=== PATIENT | male | born 1955 | race African-American/Black ===

== ENCOUNTER 2017-04-09 19:14 | Inpatient (IN) | payer OTHER ==
[~2017-04-09] VITALS: Ht 180.3 cm; Wt 87.6 kg
--- NOTE | ~2017-04-09 | WRIGHTHP ---
[place], [place] PATIENT HISTORY AND PHYSICAL EXAM [id number] #: [id number] ROOM: 311 DOCTOR: ROSEMARIE BUSH MD BIRTHDATE: [birth year] DOS: 04/10/2017 INITIAL PYSCHIATRIC EVALUATION. CHIEF COMPLAINT: "I've just been so depressed, I screwed up, I really disappointed myself." HISTORY OF PRESENT ILLNESS: This is a 62-year-old black male who presented to Emergency Room complaining of increased depression. The patient has had multiple psychiatric admissions in his lifetime. Most recently, his in September of this year and since that time, he had relapsed after being clean for 7 months, drug of choice is cocaine. The patient reports that he was going to overdose on his medications and did not want to go on because he feels like he is a failure. The depression has worsened over the last month. He endorses poor sleep with difficulty falling asleep, sleep continuity disturbance, hot frame tender awakening, anergia, anhedonia, hopeless, helpless feelings, crying spells, and inability to cope. Most recently, he has been stabilized on Cymbalta 30 mg a day and Seroquel 50 mg at bedtime as well as Neurontin 300 mg t.i.d. He is admitted now to rule out organic factors, stabilize on medication and to engage in individual and haney milieu activity. PAST MEDICAL HISTORY: Remarkable for hypertension and chronic pain issues. MENTAL STATUS: He is alert and oriented to person, place, and time. Mood is overwhelmingly depressed. Affect is flat and blunted with a constricted range. He endorses multiple neurovegetative symptoms and suicidal thoughts. There is no hypomania or letitia. There are no auditory or visual hallucinations. No delusions, no paranoia. Short, intermediate, and long-term memory are intact. DIAGNOSIS: Major depression, recurrent, severe; dysthymic disorder and cocaine abuse, unspecified. PLAN: I will continue him on Cymbalta, but increase from 30 to 60 mg at bedtime. I had augmented this last evening with Remeron, but I will discontinue Remeron in lieu of Wellbutrin-XL 150 mg in the morning. This will mimic the effect of cocaine and help block any cocaine withdrawal symptoms that he might have. It also does not interact adversely with the Cymbalta. I will maintain Seroquel at 50 mg at bedtime as an augmenting agent for the antidepressants. We will engage him in individual and haney milieu activity with the ultimate plan to discharge back home to the [facility] when psychiatrically stable. [place], [place] PATIENT HISTORY AND PHYSICAL EXAM NAME: BRENTON ODOM UNIT #: [id number] ROOM: 311 DOCTOR: ROSEMARIE BUSH MD BIRTHDATE: [birth year] ROSEMARIE BUSH MD CM:HISPHYS:PATIENT HISTORY AND PHYSICAL EXAMINATION 5 5 ROSEMARIE BUSH MD 04/10/17955 interface
--- NOTE | ~2017-04-09 | DS ---
[place], [place] DISCHARGE SUMMARY [id number] #: [id number] ROOM: 312 DOCTOR: ROSEMARIE BUSH MD BIRTHDATE: [birth year] DOS: 04/18/2017 CHIEF COMPLAINT: "I have just been so depressed, I screwed up, I really disappointed myself." HISTORY OF PRESENT ILLNESS: This is a 62-year-old black male who presented to the emergency room at [facility] complaining of increased depression. He has had multiple psychiatric admissions in his lifetime, most recently his in September of this year and since that time, he relapsed after being clean off of cocaine for 7 months. He reports that he was going to overdose on his medication and did not want to go on because he feels like he is a failure. His depression has worsened over the last month. He endorses poor sleep with difficulty falling asleep, sleep continuity disturbance, director of early childhood education awakening, anergia, anhedonia, hopeless, helpless feelings, crying spells, and inability to cope. Most recently, he was on Cymbalta and Seroquel as well as some Neurontin. He was admitted now to rule out organic factors and to stabilize on medication. SUMMARY OF HOSPITAL COURSE: The patient was admitted to the unit where he was found to be overwhelmingly depressed. He was continued initially on his Cymbalta and then had it augmented first with Remeron, but then this was discontinued in lieu of Wellbutrin. Later, he stated that he wanted something that he could take in the morning and at night, so these medications were discontinued. He was having significant sleep difficulty with difficulty falling asleep, sleep continuity disturbance and director of early childhood education awakening. Doxepin 150 mg at bedtime was utilized as antidepressant and he was augmented then with Prozac weekly because he states that in the past he had done well on Prozac. The patient engaged readily in therapy and utilized therapy to develop positive coping skills and a positive discharge plan. He wanted to find a way to stay clean and sober and avoid the pitfalls of his past indiscretions. He convincingly denied suicidal thoughts, homicidal thoughts and he convincingly denied medication side effects. On the day of discharge, he did request that I order him something as a p.r.n. that would not be addictive that he could use for sleep. He was fearful that lack of sleep would lead him into bad behavior. He voiced positive plans for the future and was discharged back home to [place] on April 18. MENTAL STATUS AT DISCHARGE: The patient was alert and oriented to person, place, and time. Mood was euthymic. Affect appropriate. There were no symptoms of hypomania or letitia. There were no overt auditory or visual hallucinations. No delusions, no paranoia. Memory was fully intact. FINAL DIAGNOSES: Major depression, recurrent, severe; dysthymic disorder and cocaine abuse. [place], [place] DISCHARGE SUMMARY NAME: BRENTON ODOM UNIT #: [id number] ROOM: 312 DOCTOR: ROSEMARIE BUSH MD BIRTHDATE: [birth year] ROSEMARIE BUSH MD CM:VICENTE [id number] ROSEMARIE BUSH MD 04/18/17 1620 interface
--- NOTE | 2017-04-09 19:00 | NUR ---
SPOKE WITH DR. BUSH ON NEW REFERRAL, PATIENT WILL BE ADMITTED TO UNIT VIA PINK SLIP WITH DIAGNOSIS OF MAJOR DEPRESSION DISORDER AND ORDERS RECIEVED AT THIS TIME.
--- NOTE | 2017-04-09 19:10 | NUR ---
ST ELENITA VALDEZ CALLED IN TO REPORT PATIENT'S BP IS 128/90, COMPARED WITH BP AT 5PM OF 170/90.
[2017-04-09] MEDS ORDERED: CYMBALTA30 MG PO (19:52)
[2017-04-09] MEDS ORDERED: ADVIL200 MG PO (19:53)
[2017-04-09] MEDS ORDERED: NEURONTIN300 MG PO (19:53)
[2017-04-09] MEDS ORDERED: SEROQUEL50 MG PO (19:54)
[2017-04-09] MEDS ORDERED: MINIPRESS5 MG PO (20:25)
[2017-04-09 22:18] VITALS: BP 146/92
--- NOTE | 2017-04-09 23:00 | NUR ---
BRENTON ODOM a 62 year old M admitted via stretcher from [facility] as an emergency 72 hr. hold admission. Arrived on unit at 2215. ALLERGIES: NKA. Vital signs are: [id number] 146/92. The client signed the following forms with stated understanding: Authorization For The Release of Medical Information, Clothing List, Consent and Release Forms/Receipt of Rights, Acknowledgement of Advance Directive Information, Behavioral Health Consent Form, and Informed Consent of Medications. Admitted under the services of Dr. ELEAZAR FRANKLIN,[facility]. A search was conducted and hazardous articles were removed. Client was oriented to the unit. PT CO-OPERATIVE THROUGHOUT ADMISSION. ALERT & ORIENTED X4. PT DEPRESSED & VOICED MISSING HIS SINCE HER IN SEPTEMBER. DENIES SUICIDAL FEELINGS & STATED THAT HE IS LONLY. STATES DIFFICULTY SLEEPING & HAVING NIGHTMARES. NELLIE LABOY
--- NOTE | 2017-04-09 23:17 | NUR ---
SPOKE WITH DR NUGENT. INFORMED OF ADMISSIONS AND BRIEF HISTORY. NO NEW ORDERS AT THIS TIME
[2017-04-09 23:21] VITALS: BP 146/92
--- NOTE | 2017-04-10 06:26 | NUR ---
PT HAS BEEN OBSERVED ON Q 15 MIN CHECKS & HAS SLEPT QUIETLY THROUGHOUT THE SHIFT PAST [id number].
[2017-04-10 06:56] LABS: MEAN CELL VOLUME 89.6 fl (80.0-94.0); MEAN CORPUSCULAR HGB 29.9 pg (27.0-31.0); MEAN CORPUSCULAR HGB CONC 33.3 g/dl (33.0-37.0); MEAN PLATELET VOLUME 10.6 fl (9.6-12.3); PLATELET COUNT AUTOMATED 155 10*3/uL (130-400); RED BLOOD COUNT 4.69 10*6/uL (4.50-5.90); RED CELL DISTRI WIDTH 12.8 % (0-14.5); WHITE BLOOD COUNT 6.1 10*3/uL (4.8-10.8)
[2017-04-10 07:12] LABS: ALBUMIN 3.2 gm/dl (3.1-4.5); ALKALINE PHOSPHATASE 54 U/L (45-117); BUN 20 mg/dl (7-24); CHLORIDE 109 mmol/L (98-107); CHOLESTEROL 127 mg/dL (<200); CREATININE 1.44 mg/dL (0.70-1.30); HDL CHOLESTEROL 58 mg/dl (40-60); LDL CHOLESTEROL 55 mg/dL (9-159); POTASSIUM 3.6 mmol/L (3.5-5.1); SGOT/AST 24 IU/L (3-35); SGPT/ALT 26 U/L (12-78); SODIUM 141 mmol/L (136-145); TOTAL PROTEIN 6.6 gm/dL (6.4-8.2); TRIGLYCERIDES 71 mg/dl (<150); VLDL CHOLESTEROL 14 mg/dL (6-40)
[2017-04-10 07:14] LABS: TOTAL CELLS COUNTED 100 #CELLS
[2017-04-10 07:15] LABS: BURR CELLS FEW; PLATELET SUFFICIENCY NORMAL (NORMAL)
[2017-04-10 07:20] LABS: THYROID STIM HORMONE (HS) 0.612 uIU/ml (0.358-4.75)
[2017-04-10 07:51] VITALS: BP 102/66
[2017-04-10 07:55] LABS: VITAMIN D, 25-HYDROXY 27.2 ng/mL (30-100)
--- NOTE | 2017-04-10 13:30 | NUR ---
IV PLACED IN LEFT AC USING A 22 GAUGE IV CATHETER.
--- NOTE | 2017-04-10 14:33 | NUR ---
PT ENCOUARGED TO COME OUT OF ROOM TO WATCH FOOTBALL BUT PT REPORTS THAT HE IS FEELING VERY TIRED TODAY BECAUSE HE HASN'T BEEN SLEEPING MUCH SINCE HE RELAPSED ON CRACK COCAINE. PT IS IN HIS ROOM, LAYING IN BED WITH EYES CLOSED. RESP EASY AND REGULAR.
--- NOTE | 2017-04-10 16:47 | NUR ---
PT REPORTS THAT HE HASN'T HAD A BOWELMOVEMENT FOR 5 DAYS AND IS REQUESTING A SUPPOSITORY. PT STATES THAT DULCOLAX HAS BEEN EFFECTIVE IN THE PAST AND HE WOULD LIKE TO HAVE THIS MEDICATION ORDERED. DR. ESTHER ESCAMILLA MADE AWARE OF PT'S COMPLAINTS AND REQUEST FOR DULCOLAX VIA TELEPHONE AT [id number].
--- NOTE | 2017-04-10 17:33 | NUR ---
DR. ESCAMILLA HERE TO SEE PATIENT.
--- NOTE | 2017-04-10 17:33 | NUR ---
PT WAS GIVEN DULCOLAX FOR C/O CONSTIPATION. PT ENCOURAGED TO MAKE STAFF AWARE IF MEDICATION IS EFFECTIVE. HE AGREED.
[2017-04-10 20:00] VITALS: BP 125/70
--- NOTE | 2017-04-10 21:18 | NUR ---
24 HR chart check completed.
--- NOTE | 2017-04-10 22:00 | NUR ---
PT STATED RELIEF OF CONSTIPATION WITH DULCOLAX. STATED HE WENT A LITTLE BIT.
--- NOTE | 2017-04-11 06:08 | NUR ---
PT HAS BEEN OBSERVED ON Q 15 MIN CHECKS & HAS SLEPT QUIETLY THROUGHOUT THE SHIFT PAST 2315.
[2017-04-11 07:06] LABS: BUN 16 mg/dl (7-24); CHLORIDE 110 mmol/L (98-107); CREATININE 1.22 mg/dL (0.70-1.30); POTASSIUM 3.6 mmol/L (3.5-5.1); SODIUM 141 mmol/L (136-145)
[2017-04-11 07:51] VITALS: BP 98/53
--- NOTE | 2017-04-11 09:00 | NUR ---
RADHA GRAVESNP ON UNIT TO ASSESS PT.
--- NOTE | 2017-04-11 12:47 | NUR ---
PT ALERT TO PERSON,PLACE,TIME AND SITUATION. PT MED COMPLIANT WITHOUT DIFFICULTY. PT MOOD IS DEPRESSED, PT ISOLATIVE TO ROOM, REQUIRING MUCH ENCOURAGEMENT TO PARTICIPTE IN GROUPS/ACTIVITIES. NO HALLUCINATIONS OR DELUSIONS NOTED. PT DENIES ANY HOMICIDAL/SUICIDAL THOUGHTS. PT CONTRACTED FOR SAFETY WITH STAFF, IF SUCH THOUGHTS ARISE. PT AMBULATORY THROUGHOUT UNIT, GAIT STEADY. PT CONSUMED 100% OF BREAKFAST AND LUNCH. PT CONTINENT OF BOWEL AND BLADDER. MED EDUCATION PROVIDED. PLAN IS TO CONTINUE TO ENCOURAGE PT TO PARTICIPATE IN GROUPS/ACTIVITIES, MONITOR PT BEHAVIORS ON Q15 MIN SAFETY CHECKS, ENCOURAGE PT TO VOICE ANY SUICIDAL THOUGHTS TO STAFF.
--- NOTE | 2017-04-11 13:12 | NUR ---
Exercise/Trivia Patient did attend group this morning as well as participated. Group originally started out as Exercise/Trivia but became a discussion group. Patient set a goal for being positive. Rah stated his grief over losing his in september who took care of him for 28 years. Rah states he doesnt know how to take care of himself. Patient was very open about his grief and would like to see someone to help him deal with his issues. Staff notified community action worker
[2017-04-11 19:03] VITALS: BP 122/67
--- NOTE | 2017-04-11 20:43 | NUR ---
24 HR chart check completed.
--- NOTE | 2017-04-12 06:28 | NUR ---
PT HAS BEEN OBSERVED ON Q 15 MIN CHECKS & HAS SLEPT QUIETLY THROUGHOUT THE SHIFT PAST 2200.
[2017-04-12 07:48] VITALS: BP 111/70
--- NOTE | 2017-04-12 08:01 | NUR ---
Coffee Social/Cards the patient did attend group as well as participated on 04/11/17. This patient as well as well as the other patients was not interested in playing cards. This patient talked of his past, and his family and what his children are doing. I encouraged this patient to call a family member or friend when he feels overwhelmed with his grief. Patient again talked of finding a counselor to help him. We also talked of coping skills and deep breathing when patient feels anxiety
--- NOTE | 2017-04-12 12:59 | NUR ---
Trikelia/Positive Traits Patient did attend group this morning as well as participated. we discussed positive traits and discussed this patients positive traits. We also discussed what positive traits patient needed to work on. 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
--- NOTE | 2017-04-12 15:38 | NUR ---
Grief/Coping Patient did attend group this afternoon as wellas participate. Afternoon group was shared with Advanced Practice Psychiatric Nurse. The patient was very involved in group discussing openingly of the life he shared with his and her passing away. Patient was vocal of his grief and this being the first time he has spoke of her without crying. Patient was giving coping skills and ideas to help him as well as various hand outs
--- NOTE | 2017-04-12 17:34 | NUR ---
PRN MOM 30ML GIVEN AT THIS TIME FOR CONSTIPATION.
[2017-04-12 18:05] LABS: NEURONTIN (GABAPENTIN) 2.5 ug/mL (4.0-16.0)
--- NOTE | 2017-04-12 18:49 | NUR ---
PT GRADUALLY BECAME LESS ISOLATIVE THROUGHOUT DAY. MUCH COAXING FOR MEALS AND AM GROUP. BY END OF SHIFT PT MOOD BRIGHTENED AND WAS ABLE TO OPENLY DISCUSS GRIEF AND LOSS OF . MEDICATION COMPLIANT WITH OUT DIFFICULTY. MULTIPLE PHONE CALLS TO BUILDING SUPER CONCERNED ABOUT NOT BEING HOME FOR MULTIPLE DAYS IN A ROW. PT PROVIDED 1-1 AND GROUP THERAPY, EDUCATED AND DISCUSSED COPING SKILLS. PT IN DINING AREA SOCILIZING WITH PEER AT THIS TIME. WILL CONTINUE TO ENCOURAGE PARTICIPATION AND REIENFORCE COPING SKILLS.
[2017-04-12 20:00] VITALS: BP 130/87
--- NOTE | 2017-04-12 23:38 | NUR ---
PATIENT STATING THAT HE WAS UNABLE TO SLEEP AND WANTING SOMETHING TO HELP. THIS NURSE TOLD PATIENT THAT HE COULD ATIVAN AND THAT ATIVAN WAS NOT TO HELP FOR SLEEP BUT MAYBE ABLE TO HELP HIM RELAX SO THAT HE IS ABLE TO SLEEP. PATIENT STATED THAT HE COULDN'T FIGURE OUT WHAT WAS KEEPING HIM AWAKE AND THAT HE WAS SLEEPING FINE UNTIL TONIGHT. THIS NURSE ASKED PATIENT IF HE HAD TAKEN ANY MEDICATIONS IN THE PAST TO HELP HIM SLEEP. PATIENT STATED THAT HE HADN'T FOR QUITE SOMETIME AND HE THINKS THE PILL IS RED AND WHITE. THIS NURSE MEDICATED PATIENT WITH ATIVAN AND LET HIM KNOW THAT HIS REQUEST FOR SOMETHING FOR SLEEP WOULD BE PASSED ALONG TO DR. BUSH IN THE MORNING. MEDICATION WITH EFFECTIVE RESULTS AT THIS TIME
--- NOTE | 2017-04-13 03:20 | NUR ---
24 HR chart check completed.
--- NOTE | 2017-04-13 05:38 | NUR ---
B: DEPRESSION I: THERAPEUTIC COMMUNICATION, 1:1 R: I FEEL LIKE I'M NOT READY TO GO HOME. I HAVE A NICE HOUSE AND EVERYTHING, BUT I'M JUST NOT READY P: MEDICATION COMPLIANCE, PARTICIPATE IN GROUPS, IDENTIFY COPING SKILLS WITH DEPRESSION
[2017-04-13 08:46] VITALS: BP 105/59
--- NOTE | 2017-04-13 11:20 | NUR ---
Reminiscing/Feelings Patient did not attend group this morning. At went to Patients room x2 and woke him up and encouraged him to attend group. Patient stated he was and would be getting up to do so. AT went to patients room a 3rd time and patient was asleep again
--- NOTE | 2017-04-13 11:45 | NUR ---
PT SIGNED VOLUNTARY CONSENT FOR TREATMENT.
--- NOTE | 2017-04-13 15:31 | NUR ---
PT ALERT TO PERSON,PLACE,TIME AND SITUATION. PT MED COMPLIANT WITHOUT DIFFICULTY. PT REPORTS STILL FEELING DEPRESSED AND STATING "I KNOW I'M NOT READY TO GO HOME, I WOULD BE ALONE AND I KNOW I'M NOT READY FOR THAT. I'M BETTER THAN WHEN I CAME IN BUT I'M STILL NOT READY TO GO." PT DENIES ANY HOMICIDAL/SUICIDAL THOUGHTS, PT CONTRACTED FOR SAFETY WITH STAFF, IF SUCH THOUGHTS ARISE. NO HALLUCINATIONS OR DELUSIONS NOTED. PT ISOLATIVE TO ROOM AFTER BREAKFAST, PT ENCOURAGED TO PARTICIAPTE IN GROUPS/ACTIVITIES. PT SHOWERED AND SHAVED THIS SHIFT. PT AMBULATORY THROUGHOUT UNIT, GAIT STEADY. PT CONTINENT OF BOWEL AND BLADDER. PLAN IS TO CONTINUE TO ENCOURAGE PT TO PARTICIPATE IN GROUPS AND ACTIVITIES, MONITOR PT BEHAVIORS ON Q15 MIN SAFETY CHECKS, ENCOURAGE PT TO VOICE THOUGHTS OF DEPRESSION OR ANY SUICIDAL THOUGHTS HE MAY HAVE.
[2017-04-13 20:00] VITALS: BP 148/80
--- NOTE | 2017-04-13 21:20 | NUR ---
PATIENT REQUEST ATIVAN TO HELP RELAX SO HE COULD SLEEP. MEDICATION WITH EFFECTIVE RESULTS. VOICES NO COMPLAINS OF PAIN OR DISCOMFORT AT THIS TIME
--- NOTE | 2017-04-14 06:53 | NUR ---
24 HR chart check completed.
--- NOTE | 2017-04-14 07:53 | NUR ---
Feelings: Dealing with negative feelings PT did not attend group on 04/13/2017. Patient was taking a shower. When patient finished AT furnished patient with hand out and discussed feelings of negativity. Patient worried because son doesnt know where he is and patient doesnt know how to contact son. Directed patient to talk with nurse or social work associate about this situation
[2017-04-14 09:12] VITALS: BP 101/59
--- NOTE | 2017-04-14 12:57 | NUR ---
Reminiscing Patient did attend group this morning as well as participated. Patient shared memories of his life with his . Patient was able to do so without being upset by talking about her. Patient also encouraged a new patient to speak about herself as well as commenting on the conversation
--- NOTE | 2017-04-14 17:10 | NUR ---
TREATMENT TEAM WAS HEL CARLOS DSICAUSS DISCHARGE WITH THE FOLLOWING: DR. BUSH, CASSANDRA CONSULTANT, RNs, SW. PENDING DISCHARGE FOR .
--- NOTE | 2017-04-14 18:13 | NUR ---
PT IS ALERT AND ORIENTED X4. PLEASANT AND COOPERATIVE WITH STAFF. MOOD REMAINS DEPRESSED WITH APPROPRAITE AFFECT. DENIES ANY SI/HI. DENIES ANY SENSORY DISTURBANCES AND NONE ARE NOTED. APPETITE GOOD FOR ALL MEALS. ATTENDING AND PARTICIPATING IN GROUP THERAPY WITH MINIMAL ENCOURAGEMENT. NAPS INTERMITTENTLY T/O THE DAY. MEDICATION COMPLIANT WITHOUT DIFFICULTY. EDUCATION PATIENT ON MEDICATION CHANGES THIS SHIFT WITH GOOD EFFECT. WILL CONTINUE WITH Q15 MIN OBSERVATION CHECKS PER ORDERS. POSITIVE PEER INTERACTIONS NOTED THROUGHOUT THE DAY IN THE DAY ROOM. NO ACUTE DISTRESS NOTED.
[2017-04-14 20:43] VITALS: BP 125/72
--- NOTE | 2017-04-14 22:09 | NUR ---
B- DEPRESSED MOOD I- 1:1 WITH STAFF AND SOCAILIZATION WITH PEERS, THERAPEUTIC COMMUNICATION R- PT OPENED UP TO STAFF AND PEERS. JOKING AROUND WITH PEERS AND PLAYING CHESS WITH ANOTHER PEER. P - CONTINUE TO OFFER AND ENCOURAGE THERAPEUTIC COMMUNICATION, ENCOURAGE PARTICIPATION IN GROUPS, AND IDENTIFY COPING SKILLS FOR DEPRESSION.
--- NOTE | 2017-04-15 04:40 | NUR ---
24 HR chart check completed.
--- NOTE | 2017-04-15 06:45 | NUR ---
pt slept greater than 8 hours. no s/s of distress noted. no c/o pain. see [facility] flowsheet for specific monitoring. q15 minute safety checks maintained.
--- NOTE | 2017-04-15 07:34 | NUR ---
Painting/Socializing Patient did attend group as well as participate. Patients painted bird houses,visualizing what kirti image of a bird house. 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 Patient was very disaplined in his creation. Doing this the patient also interacted with other patients as he was complimented on his talent
[2017-04-15 07:53] VITALS: BP 128/75
[2017-04-15 07:54] LABS: BASO % 0.6 % (0.0-1.0); EOS # 0.2 10*3/uL (0.0-0.4); EOS % 4.2 % (1.0-4.0); HEMATOCRIT 40.6 % (42.0-52.0); HEMOGLOBIN 13.2 g/dl (14.0-18.0); LYMPH # 2.9 10*3/uL (1.3-4.4); LYMPH % 53.3 % (27.0-41.0); MEAN CORPUSCULAR HGB 29.6 pg (27.0-31.0); MEAN CORPUSCULAR HGB CONC 32.5 g/dl (33.0-37.0); MEAN PLATELET VOLUME 11.2 fl (9.6-12.3); MONO # 0.7 10*3/uL (0.1-1.0); MONO % 12.5 % (3.0-9.0); NEUT # 1.6 10*3/uL (2.3-7.9); NEUT % 29.2 % (47.0-73.0); PLATELET COUNT AUTOMATED 150 10*3/uL (130-400); RED BLOOD COUNT 4.46 10*6/uL (4.50-5.90); RED CELL DISTRI WIDTH 13.1 % (0-14.5); WHITE BLOOD COUNT 5.4 10*3/uL (4.8-10.8)
[2017-04-15 08:38] LABS: ALBUMIN 2.9 gm/dl (3.1-4.5); BUN 16 mg/dl (7-24); CHLORIDE 111 mmol/L (98-107); POTASSIUM 3.9 mmol/L (3.5-5.1); SODIUM 144 mmol/L (136-145)
[2017-04-15 08:42] LABS: ALKALINE PHOSPHATASE 64 U/L (45-117); CREATININE 1.25 mg/dL (0.70-1.30); SGOT/AST 25 IU/L (3-35); SGPT/ALT 28 U/L (12-78); TOTAL PROTEIN 6.1 gm/dL (6.4-8.2)
--- NOTE | 2017-04-15 11:21 | NUR ---
GEOFFREY SHEPHERD AT BEDSIDE TO ASSESS PATIENT. THIS NURSE [id number] WITH SUSTAINABILITY OFFICER AND OBSERVED PT LAYING UPSIDE DOWN IN BED. INCREASED CONFUSION, LATHARGY, AND GARBLED SPEECH NOTED. RESPIRATIONS EASY AND EVEN. CALLED GEOFFREY PRAKASH AND UPDATED ON PT STATUS, NEW ORDERS WRITTEN DOWN AND READ BACK FROM GEOFFREY PRAKASH.
--- NOTE | 2017-04-15 11:34 | NUR ---
Painting,Decorating/Socialization We started this project yesterday afternoon. Patient did not attend group this morning. Patient stated he was just too tired and nurse informed me he had a med adjustment
--- NOTE | 2017-04-15 15:52 | NUR ---
Finishing Sigasi Patient did not attend group this afternoon. Patient was groggy when i attempted to wake him up for group. Patient started on new meds today
--- NOTE | 2017-04-15 17:42 | NUR ---
[facility] AND WAS INFORMED TO CALL [place] [facility]ICE DUE TO PT BEING ON [employer] PROBATION. [facility] FOR AT 8:30AM.
--- NOTE | 2017-04-15 17:43 | NUR ---
ROGELIO RECEIVED CALL FROM [employer] VETERINARY BACTERIOLOGIST CORBY HENRIETTARALPH ([phone]). rogelio HAD pT SIGN RELEASE OF INFORMATION AND THEN RETURNED CALL TO OFFICER. Corby HAS BEEN LOOKING FOR pT SINCE 04-08-17. ROGELIO INFORMED CORBY THAT PT DID NOT TELL ROGELIO HE WAS ON PROBATION. FAX # IS [phone]. ROGELIO WILL FAX DISCHARGE INFORMAION. ROGELIO TRANSFERED CALL TO [facility] SO PT COULD SPEAK WITH VETERINARY BACTERIOLOGIST.
[2017-04-15 20:00] VITALS: BP 137/85
--- NOTE | 2017-04-15 23:13 | NUR ---
PT VOICED INCREASED ANXIETY AND DIFFICULTY FALLING ASLEEP. 1:1 INEFFECTIVE. PT UNABLE TO DESCRIBE WHAT WAS INCREASING HIS ANXIETY. PT ASKED FOR A PRN. GONE OVER MEDICATION WITH PT AND PT REQUESTED PRN GEODON TO HELP DECREASE HIS ANXIETY. PT SITTING IN DININGROOM AT THIS TIME. PRN GEODON GIVEN PER PRN ORDER. WILL MONITOR PT FOR EFFECTIVENESS OF MEDICATION.
--- NOTE | 2017-04-16 00:15 | NUR ---
PT RESTING WITH EYES CLOSED. PRN GEODON EFFECTIVE. WILL CONTINUE TO MONITOR PT FOR EFFECTIVENESS OF MEDICATION.
--- NOTE | 2017-04-16 06:19 | NUR ---
PT SLEPT GREATER THAN 6 HOURS. NO S/S OF DISTRESS. NO C/O PAIN. Q 15 MINUTE SAFETY CHECKS MAINTAINED. PRN GEODON REMAINS EFFECTIVE AT THIS TIME. PT RESTING QUIETLY WITH EYES CLOSED IN BED.
[2017-04-16 07:55] VITALS: BP 128/81
[2017-04-16 20:18] VITALS: BP 138/79
--- NOTE | 2017-04-17 04:30 | NUR ---
24 HR chart check completed.
--- NOTE | 2017-04-17 06:50 | NUR ---
PT LESS ISOLATIVE THIS SHIFT. VOICING COMPLAINTS OF SEXUALLY INNAPROPRIATE SPEECH FROM PEER AND DESIRE TO BE LEFT ALONE IN ROOM. PT ENCOURAGED TO ALERT STAFF WHEN BEING MADE UNCOMFORTABLE BY PEER 1-1 PROVIDED. PT MED COMPLIANT WITH OUT DIFFICULTY. SLEPT 7 HOURS
[2017-04-17 08:02] VITALS: BP 117/69
--- NOTE | 2017-04-17 13:10 | NUR ---
PT REPORTS PAIN 7/10 IN BACK. GABAPENTIN GIVEN ORDERED FOR PAIN.
--- NOTE | 2017-04-17 18:43 | NUR ---
PT ALERT AND ORIENTED X3. BEHAVIOR HAS BEEN CALM AND COOPERATIVE. MOOD HAS BEEN LESS DEPRESSED. HE HAS BEEN OUT OF HIS ROOM AND SOCIALIZING WITH PEERS. PT DRAWING AND COLORING WITH PEERS THROUGHOUT THE DAY. HE ENGAGES VOLUNTARILY WITH STAFF AND PEERS IN CONVERSATIONS. PT WATCHED FOOTBALL WELL. COMPLIANT WITH ALL MEDICATIONS. PT EDUCATED ON EACH MEDICATION GIVEN AND VERBALIZED UNDERSTANDING OF EACH. APPETITE IS GOOD.
[2017-04-17 20:47] VITALS: BP 129/72
--- NOTE | 2017-04-17 21:00 | NUR ---
INTERACTIVE WITH PEERS. PLAYING BOARD GAMES WITH ACTIVE CONVERSATIONS. CLIENT ACTIVELY DRAWING PICTURES FROM SITE. CALM
--- NOTE | 2017-04-17 22:55 | NUR ---
PROBLEM 1- DEPRESSION--RELATED TO LOSS PI- LEARN NEW COPING TECHNIQUES. INVOLVE SELF IN GROUPS TO PREVENT ISOLATION MEDICATION COMPLIANCE. P- NO SUICIDAL IDEATIONS. AVOID ALL ILLEGAL DRUGS,
--- NOTE | 2017-04-18 05:00 | NUR ---
24 HR chart check completed.
[2017-04-18 08:06] VITALS: BP 110/72
--- NOTE | 2017-04-18 10:45 | NUR ---
DR COLE NOPREETIIED OF PATIENT'S DISCHARGE.
[2017-04-18] MEDS ORDERED: NEURONTIN300 MG PO (10:52)
[2017-04-18] MEDS ORDERED: ATARAX,VISTARIL50 MG PO (10:52)
[2017-04-18] MEDS ORDERED: DOXEPIN HCL25 MG PO (10:52)
[2017-04-18] MEDS ORDERED: Vitamin D PO (10:52)
[2017-04-18] MEDS ORDERED: Prozac PO (10:52)
[2017-04-18] MEDS ORDERED: NICODERM CQ1 EAC2 T (11:51)
--- NOTE | 2017-04-18 11:51 | NUR ---
PATIENT WANT TO CONTINUE NICODERM PATCHES TO STOP SMOKING. DR LEBRON UPDATED FOR DISCHARGE AT THIS TIME.
--- NOTE | 2017-04-18 13:19 | NUR ---
KARLA inquired with Pt about follow up Dr. hernandez. Pt does not have a primary Dr. Karla asked if Pt wanted to be seen at a walkin clinic and Pt said yes. SW will give Pt information on clinincs in his area. KARLA showed Pt that he could go to [facility] appointment then to walkin clinic that is close [facility] and Pt agreed to this.
--- NOTE | 2017-04-18 13:20 | NUR ---
Socializing This is a tuesday with new patients. I like to talk with them to find out a little about them such as likes and dislikes,pets if they have children etc... Patient was in attendence today but did not participate. Patient sat at another table drawing a picture. Patient is an artist and enjoys drawing and painting
--- NOTE | 2017-04-18 13:21 | NUR ---
JORDEN scheduled discharge transportation with [facility]. Transportation will picking tech Pt between 12 - 3pm. Rubber Cutter will call the [facility] tentative time is 2:50pm. JORDEN informated RN and Milieu.
--- NOTE | 2017-04-18 13:29 | NUR ---
SW informed Pt of garbage pick up worker time of 2:50pm.
--- NOTE | 2017-04-18 14:55 | NUR ---
PATIENT'S DISCHARGE REVIEWED, SIGNED AND ALL BELONGING TAKEN WITH PATIENT. PATIENT ASSISTED OFF OF UNIT IN WHEELCHAIR AND ASSISITED TO PRIVATE VEHICLE SET UP BY CHECK CLERK. PATIENT DISCHARGED AT THIS TIME.
--- NOTE | 2017-04-18 15:23 | NUR ---
SW reviewed discharge instructions with Pt. Pt received copy of discharge papers. Pt discharged home with [employer] transportation.
[2017-04-20 17:11] LABS: NEURONTIN (GABAPENTIN) 6.3 ug/mL (4.0-16.0)
== END 2017-04-18 14:56 | disposition home or self-care (01) | DRG 885 ==
LOC: 3N 19:14
PROVIDERS: Internal Medicine; Registered Nurse; ADMIT Psychiatry & Neurology Psychiatry
DX: F33.2 Major depressive disorder, recurrent severe without psychotic features (principal); N17.0 Acute kidney failure with tubular necrosis; E44.0 Moderate protein-calorie malnutrition; I10 Essential (primary) hypertension; F34.1 Dysthymic disorder; G89.29 Other chronic pain; F14.10 Cocaine abuse, uncomplicated; E86.0 Dehydration; R73.03 Prediabetes; E55.9 Vitamin D deficiency, unspecified; E87.8 Other disorders of electrolyte and fluid balance, not elsewhere classified; E66.3 Overweight; F41.9 Anxiety disorder, unspecified; K59.00 Constipation, unspecified; Z82.3 Family history of stroke; Z80.9 Family history of malignant neoplasm, unspecified; Z79.899 Other long term (current) drug therapy

== ENCOUNTER 2017-04-25 16:18 | Emergency (ER) | payer OTHER ==
[~2017-04-25] VITALS: Ht 1828 cm; Wt 90.7 kg
[~2017-04-25 16:18] MED LIST: ADVIL200 MG PO; ATARAX,VISTARIL50 MG PO; CYMBALTA30 MG PO; DOXEPIN HCL25 MG PO; MINIPRESS5 MG PO; NEURONTIN300 MG PO; NICODERM CQ1 EAC2 T; Prozac PO; SEROQUEL50 MG PO; Vitamin D PO
[2017-04-25 18:11] LABS: BASO # 0.1 10*3/uL (0.0-0.1); BASO % 0.8 % (0.0-1.0); EOS # 0.2 10*3/uL (0.0-0.4); EOS % 3.3 % (1.0-4.0); HEMATOCRIT 44.2 % (42.0-52.0); HEMOGLOBIN 14.7 g/dl (14.0-18.0); LYMPH # 3.1 10*3/uL (1.3-4.4); LYMPH % 48.5 % (27.0-41.0); MEAN CELL VOLUME 90.6 fl (80.0-94.0); MEAN CORPUSCULAR HGB 30.1 pg (27.0-31.0); MEAN CORPUSCULAR HGB CONC 33.3 g/dl (33.0-37.0); MEAN PLATELET VOLUME 10.4 fl (9.6-12.3); MONO # 0.6 10*3/uL (0.1-1.0); MONO % 8.8 % (3.0-9.0); NEUT # 2.4 10*3/uL (2.3-7.9); NEUT % 38.4 % (47.0-73.0); PLATELET COUNT AUTOMATED 164 10*3/uL (130-400); RED BLOOD COUNT 4.88 10*6/uL (4.50-5.90); RED CELL DISTRI WIDTH 13.2 % (0-14.5); WHITE BLOOD COUNT 6.3 10*3/uL (4.8-10.8)
[2017-04-25 18:25] LABS: ALBUMIN 3.5 gm/dl (3.1-4.5); ALKALINE PHOSPHATASE 74 U/L (45-117); BUN 21 mg/dl (7-24); CHLORIDE 108 mmol/L (98-107); CREATININE 1.36 mg/dL (0.70-1.30); POTASSIUM 4.3 mmol/L (3.5-5.1); SGOT/AST 37 IU/L (3-35); SGPT/ALT 39 U/L (12-78); SODIUM 141 mmol/L (136-145); TOTAL PROTEIN 7.3 gm/dL (6.4-8.2)
[2017-04-25 18:32] LABS: ACETAMINOPHEN (TYLENOL) < 2.0 ug/ml (10-30); ETHYL ALCOHOL < 3.0 mg/dl (<3)
[2017-04-25 18:34] LABS: THYROID STIM HORMONE (HS) 0.511 uIU/ml (0.358-4.75)
[2017-04-25 18:52] LABS: BILIRUBIN NEGATIVE (NEGATIVE); BLOOD NEGATIVE (NEGATIVE); CLARITY SL CLOUDY (CLEAR); COLOR YELLOW (YELLOW); GLUCOSE NEGATIVE (NEGATIVE); KETONE NEGATIVE (NEGATIVE); LEUKO ESTERASE NEGATIVE (NEGATIVE); NITRITE NEGATIVE (NEGATIVE); UROBILINOGEN 0.2 E.U./dl (0.2-1.0)
[2017-04-25 19:01] LABS: URINE AMPHETAMINES < 1000 (1000ng/ml); URINE BARBITURATES < 200 (200ng/ml); URINE BENZODIAZEPINES < 200 (200ng/ml); URINE CANNABINOIDS (THC) < 50 (50ng/ml); URINE COCAINE > 300 (300ng/ml); URINE METHADONE < 300 (300ng/ml); URINE OPIATES < 300 (300ng/ml)
[2017-04-25 19:07] LABS: URINE PHENCYCLIDINE < 25 (25ng/ml)
[2017-04-25 19:13] LABS: BACTERIA TRACE; HYALINE CAST 0-2; RBC 0-2 rbc/hpf (0-2); WBC 0-2 wbc/hpf (0-5)
== END 2017-04-26 08:45 | disposition short-term general hospital (02) ==
LOC: ED 16:18
PROVIDERS: Physician Assistant
DX: R45.851 Suicidal ideations (principal); F32.9 Major depressive disorder, single episode, unspecified; F41.9 Anxiety disorder, unspecified; F14.10 Cocaine abuse, uncomplicated; Z87.891 Personal history of nicotine dependence; Z98.890 Other specified postprocedural states; Z79.899 Other long term (current) drug therapy